=== PATIENT | male | born 1975 | race Caucasian/White ===

== ENCOUNTER 2019-07-23 13:59 | Emergency (ER) | payer BC, OTHER ==
[~2019-07-23] VITALS: Ht 188 cm; Wt 98.4 kg
[~2019-07-23 13:59] MED LIST: ACETAMINOPHEN325 M1 PO; ADULT LOW DOSE81 MG PO; ALLOPURINOL 10100 M1 PO; ANUCORT-HC25 MG RECTAL; ANUSOL-HC25 MG RECTAL; ATORVASTATIN CA40 MG PO; CELEXA40 MG PO; CLARITIN-D 12 H1 TA1 PO; COLACE 100 MG100 MG PO; FLOMAX0.4 MG PO; GLUCOPHAGE XR500 MG PO; GLUCOPHAGE1000 MG PO; GLUCOPHAGE500 MG PO; GLYBURIDE 2.52.5 M1 PO; HYDROCODONE-AP1 EAC6 PO; IBUPROFEN 600600 M1; IBUPROFEN IB200 MG PO; LISINOPRIL10 MG PO; MILK OF MA400 MG/5 M PO; NAPROSYN500 MG PO; NORCO 5-325 TA1 EACH PO; NORCO 7.5-3251 EACH PO; PHENERGAN 25 MG25 M1 PO; PROAIR HFA8.5 GM INH; ULTRAM 50MG TAB50 MG PO; XANAX 0.5 MG0.5 MG PO; ZOFRAN ODT4 MG PO; ZPAK PO
[2019-07-23 15:50] VITALS: BP 109/60
[2019-07-23] MEDS ORDERED: IBUPROFEN 600600 M1 PO (15:52)
== END 2019-07-23 15:50 | disposition home or self-care (01) ==
LOC: ER 13:59
DX: S50.11XA Contusion of right forearm, initial encounter (principal); I10 Essential (primary) hypertension; E78.00 Pure hypercholesterolemia, unspecified; F41.9 Anxiety disorder, unspecified; E11.9 Type 2 diabetes mellitus without complications; G47.30 Sleep apnea, unspecified; Z98.84 Bariatric surgery status; Z87.442 Personal history of urinary calculi; Z90.89 Acquired absence of other organs; Z88.5 Allergy status to narcotic agent; Z87.891 Personal history of nicotine dependence; W10.9XXA Fall (on) (from) unspecified stairs and steps, initial encounter; Y93.01 Activity, walking, marching and hiking; Y92.89 Other specified places as the place of occurrence of the external cause; Y99.8 Other external cause status